=== PATIENT | female | born 1985 | race Hispanic/Latino ===

== ENCOUNTER 2020-01-25 08:13 | Emergency (ER) | payer OTHER ==
[2020-01-25] MEDS ORDERED: Ondansetron PF 4 MG/2 ML Vial ONE (09:19)
[2020-01-25] MEDS ORDERED: Sodium Chloride 0.9% 1,000 ML ONE ×2 (09:19→10:33)
[2020-01-25 09:56] LABS: #Basophils 0.1 thou/uL (0.0-0.2); #Lymphocytes 0.5 thou/uL (1.20-3.40); #Monocytes 0.6 thou/uL (0.11-0.59); #Neutrophils 10.4 thou/uL (1.40-6.50); %Basophils 0.7 % (0.0-1.0); %Lymphocytes 4.3 % (21.0-51.0); %Monocytes 5.3 % (0.0-10.0); %Neutrophils 89.8 % (42.0-75.0); Mean Corpuscular HGB CONC 33.8 g/dL (32.0-36.0); Mean Corpuscular Hemoglobin 30.5 pg (27.0-31.0); Mean Corpuscular Volume 90.4 fL (78.0-98.0); Mean Platelet Volume 10.3 fL (7.4-10.4); Platelet Count 203 thou/uL (130-400); RBC Distribution Width 10.8 % (11.5-14.5); White Blood Cell (WBC) Count 11.6 thou/uL (4.8-10.8)
[2020-01-25 10:15] LABS: ALT (SGPT) 57 U/L (8-55); AST (SGOT) 42 U/L (5-34); Albumin 4.9 g/dL (3.5-5.0); Alkaline Phosphatase 76 U/L (40-110); Anion Gap 15 mmol/L (10-20); BUN (Urea Nitrogen) 8 mg/dL (7.0-18.7); Calc. Creatinine Clearance 0 mL/min (70-130); Calcium 9.5 mg/dL (7.8-10.44); Carbon Dioxide 20 mmol/L (22-29); Chloride 105 mmol/L (98-107); Estimated GFR-MDRD Greater than 90; Globulin 2.8 g/dL (2.4-3.5); Glucose 123 mg/dL (70-105); Lipase 21 U/L (8-78); Potassium 3.4 mmol/L (3.5-5.1); Protein, Total 7.7 g/dL (6.0-8.3); Sodium 137 mmol/L (136-145)
[2020-01-25 10:16] LABS: Bilirubin Negative (Negative); Blood, Urine Trace (Negative); Glucose, Urine (Dipstick) Negative (Negative); Ketone, Urine Negative (Negative); Leukocyte Negative (Negative); Nitrite Negative (Negative); Protein, Urine (Dipstick) 100 mg/dL (Neg-Trace); Urobilinogen 0.2 mg/dL (Less than 2); pH, Urine 5.5 (5.0-9.0)
[2020-01-25 10:18] LABS: Pregnancy Test - Urine (BHCG) Negative (Negative)
[2020-01-25 10:19] LABS: Pregu Control Background? CLEAR/WHITE (CLR/WHITE); Pregu Control Bar Appear? YES (CONTROL BAR); Specific Gravity 1.032 (1.002-1.036)
[2020-01-25 10:20] LABS: Specific Gravity, Urine 1.032 (1.002-1.036)
[2020-01-25 10:21] LABS: Clarity Cloudy (Clear)
[2020-01-25 10:23] LABS: Bacteria/HPF Rare-Few HPF (None Seen); RBC/HPF 0-3 HPF (0-3); Squamous Epithelial 0-3 HPF (0-3); WBC/HPF 0-3 HPF (0-3)
[2020-01-25] MEDS ORDERED: Potassium Chloride 10 MEQ/100 ML PREMIX BAG ONE (10:33)
[2020-01-26 12:52] LABS: SARS-CoV-2 MS2 Positive; SARS-CoV-2 N Gene Negative; SARS-CoV-2 S Gene Negative; SARS-CoV-2 orf1ab Negative
== END 2020-01-25 11:57 | disposition home or self-care (01) ==
LOC: MADERS 08:13
DX: E87.6 Hypokalemia (principal); R11.2 Nausea with vomiting, unspecified; R50.9 Fever, unspecified; Z20.828 Contact with and (suspected) exposure to other viral communicable diseases
CPT/HCPCS: 80053; 81003; 81015; 81025; 83605; 83690; 85025; 87635; 96361; 96365; 96375; J2405; J3480; J7050; U0003

== ENCOUNTER 2021-05-20 20:29 | Emergency (ER) | payer OTHER ==
[2021-05-20] MEDS ORDERED: traMADol HCl 50 MG TAB ONE (21:10)
[2021-05-20] MEDS ORDERED: Acetaminophen 500 MG TAB ONE (21:11)
[2021-05-20] MEDS ORDERED: diphenhydrAMINE 25 MG CAP ONE (21:11)
== END 2021-05-20 21:55 | disposition home or self-care (01) ==
LOC: MADERS 20:29
DX: O99.352 Diseases of the nervous system complicating pregnancy, second trimester (principal); O99.891 Other specified diseases and conditions complicating pregnancy; R21 Rash and other nonspecific skin eruption; R00.0 Tachycardia, unspecified; Z79.82 Long term (current) use of aspirin; Z79.899 Other long term (current) drug therapy; Z3A.21 21 weeks gestation of pregnancy
CPT/HCPCS: 99283

== ENCOUNTER 2021-07-25 08:43 | Outpatient (CLI) | payer OTHER ==
[2021-07-25 10:02] LABS: #Eosinphils 0.1 thou/uL (0.0-0.7); #Lymphocytes 1.2 thou/uL (1.20-3.40); #Monocytes 0.2 thou/uL (0.11-0.59); #Neutrophils 4.5 thou/uL (1.40-6.50); %Basophils 0.8 % (0.0-1.0); %Eosinophils 0.9 % (0.0-10.0); %Lymphocytes 19.6 % (21.0-51.0); %Monocytes 3.5 % (0.0-10.0); %Neutrophils 75.3 % (42.0-75.0); Hemoglobin 13.6 g/dL (12.0-16.0); Mean Corpuscular Volume 87.4 fL (78.0-98.0); Mean Platelet Volume 9.2 fL (7.4-10.4); Platelet Count 223 thou/uL (130-400); RBC Distribution Width 11.9 % (11.5-14.5); Red Blood Cell (RBC) Count 4.87 mill/uL (4.20-5.40)
[2021-07-25 16:34] LABS: HIV (1/2) Antibody/Antigen Non-Reactive (NonReactive); HIV 1/2 INDEX 0.07 S/CO (<1.00)
[2021-07-25 18:45] LABS: Syphilis Antibody Nonreactive (Nonreactive); Syphilis Antibody Index 0.03 S/CO (<1.00 Non-Reactive)
== END 2021-07-25 08:44 | disposition home or self-care (01) ==
LOC: MADLAB 08:43
PROVIDERS: ATTEND Family Medicine
DX: O09.523 Supervision of elderly multigravida, third trimester (principal)
CPT/HCPCS: 36415; 82950; 85025; 86780; 87389

== ENCOUNTER 2021-08-04 08:29 | Outpatient (CLI) | payer OTHER | END 2021-08-04 08:30 | disposition home or self-care (01) | LOC: MADLAB 08:29 | PROVIDERS: ATTEND Family Medicine | DX: O09.523 Supervision of elderly multigravida, third trimester (principal) | CPT/HCPCS: 36415; 82951; 82952 ==